=== PATIENT | male | born 1960 | race Caucasian/White ===

== ENCOUNTER 2017-10-06 05:39 | Day surgery (SDC) | payer OTHER ==
[2017-10-06] MEDS ORDERED: LIDOCAINE 1% (MPF) 10 ML INJ (06:29)
[2017-10-06] MEDS ORDERED: BUPIVACAINE 0.75% (MPF) 10 ML INJ (06:29)
[2017-10-06] MEDS ORDERED: SODIUM BICARBONATE (IV ADD) 50 ML (06:30)
[2017-10-06] MEDS ORDERED: EPINEPHrine 1 MG INJ (06:30)
[2017-10-06] MEDS ORDERED: TIMOLOL 0.5% 5 ML OPH (06:30)
[2017-10-06] MEDS: NEPAFENAC 0.1% 3 ML OPH OPER (06:32)
[2017-10-06] MEDS: CYCLOPENTOLATE 2% 2 ML OPH OPER (06:32)
[2017-10-06] MEDS: MOXIFLOXACIN 0.5% 3 ML OPH OPER (06:32)
[2017-10-06] MEDS: PHENYLephrine 10% 5 ML OPH OPER (06:33)
[2017-10-06] MEDS ORDERED: LIDOCAINE 2% (SDV) 5 ML INJ ×2 (06:53→07:13)
[2017-10-06] MEDS ORDERED: PROPOFOL 20 ML (07:12)
[2017-10-06] MEDS ORDERED: FENTAnyl 50 MCG/ML VIAL ×2 (07:13→08:26)
[2017-10-06] MEDS ORDERED: ONDANSETRON 4 MG INJ (07:13)
[2017-10-06] MEDS: LIDOCAINE 1% (MPF) 5 ML VIAL INJ (07:15)
[2017-10-06] MEDS: TIMOLOL 0.5% 5 ML OPH RIGHT EYE (07:59)
[2017-10-06] MEDS ORDERED: ONDANSETRON 4 MG INJ IV (08:30)
[2017-10-06] MEDS ORDERED: KETOROLAC 30 MG INJ IV (08:30)
[2017-10-06] MEDS: FENTAnyl 50 MCG/ML VIAL IV ×2 (08:31→08:39)
== END 2017-10-06 10:15 | disposition home or self-care (01) ==
LOC: SDS 05:39
DX: H25.11 Age-related nuclear cataract, right eye (principal); I25.10 Atherosclerotic heart disease of native coronary artery without angina pectoris; Z95.5 Presence of coronary angioplasty implant and graft; F17.200 Nicotine dependence, unspecified, uncomplicated
CPT/HCPCS: 66984; 93005